=== PATIENT | female | born 1935 | race Caucasian/White ===

== ENCOUNTER → 2019-09-04 11:57 | Outpatient (CLI) | payer OTHER, SELFPAY ==
--- NOTE | 2019-09-04 | DI.RAD.S_ITS ---
PROCEDURE: XR LUMBAR SPINE 2-3V INDICATIONS: Low back pain TECHNIQUE: 2 views of the lumbar spine were acquired. COMPARISON: [facility], , L-SPINE 2-3 VIEWS, 12/24/2013, 11:32. FINDINGS: Bones: 5 [id number] vertebrae are present. There is normal bony alignment maintained by unilateral left-sided posterior fusion procedure with transverse pedicle screws and vertical fixation kathryn extending along the left margin of the posterior elements of the lumbosacral spine spanning from L2-S1.. No vertebral body compression fractures. No suspicious bony lesions. Soft tissues: Overlying bowel gas pattern is normal. No suspicious soft tissue calcifications. IMPRESSION: Prior spine fusion procedure as discussed on the left only, establishing virtual anatomic alignment. No evidence of device loosening or disruption. Dictated by: Gurinder Wheeler M.D. on 09/04/2019 at 13:18 Approved by: Gurinder Wheeler M.D. on 09/04/2019 at 13:20
--- NOTE | 2019-09-04 | DI.RAD.S_ITS ---
PROCEDURE: XR RIBS RT MIN 3V W CXR 1V INDICATIONS: Low back pain TECHNIQUE: 2 views of the right ribs were acquired, along with a single view chest. COMPARISON: [facility], CR, XR CHEST 2VW, 02/09/2017, 17:17. CT, CT ANGIO CHEST PE, 02/10/2017, 12:40. FINDINGS: Surgical changes and devices: Prior unilateral left-sided lumbosacral spine fusion procedure with vertical fixation kathryn stable over time from January of 2017.. Right breast surgical clips incidentally noted. Bones and chest wall: No fractures or dislocations. No suspicious bony lesions. Overlying soft tissues appear unremarkable. No rib fracture found. Severe right shoulder joint osteoarthritis. Lungs and pleura: No pleural effusions or pneumothorax. Lungs appear clear. Mediastinum: Mediastinal contours appear normal. Heart size is normal. IMPRESSION: Source of right-sided rib pain is not identified. No adjacent pneumothorax or subcutaneous emphysema is seen. Incidental note is made of several right breast surgical clips, no osseous metastatic disease is suspected. Note is made of moderately severe right shoulder joint osteoarthritis with near qauk-sz-tevr articulation. Dictated by: Gurinder Wheeler M.D. on 09/04/2019 at 13:15 Approved by: Gurinder Wheeler M.D. on 09/04/2019 at 13:18
== END ==
PROVIDERS: PCP Internal Medicine; Visit Provider Internal Medicine
DX: M54.5 Low back pain (principal); R07.81 Pleurodynia; M19.011 Primary osteoarthritis, right shoulder; Z98.1 Arthrodesis status
CPT/HCPCS: 71100; 71101; 72100

== ENCOUNTER → 2020-03-05 13:07 | Outpatient (CLI) | payer OTHER, SELFPAY ==
--- NOTE | 2020-03-05 | DI.MRI.S_ITS ---
PROCEDURE: MR STROKE Pre- and post-contrast brain MRI, non-contrast brain MR angiogram, pre- and postcontrast neck MR angiogram INDICATIONS: Transient cerebral ischemic attack, unspecified TECHNIQUE: Brain: Noncontrast axial T1 spin echo, axial T2 fast spin echo, sagittal and axial FLAIR, coronal T2 fast spin echo, axial gradient echo, axial diffusion and ADC through the brain. After the administration of contrast, axial 3D VIBE of the cranial vasculature and brain. Brain MRA: Non-contrast 3-D time of flight MR angiogram, with multiple figoiqj-olyrhaczo-itcazhvrti (MIP) reformats performed. Neck MRA: Axial and sagittal TruFISP through the neck. Coronal dynamic MR angiogram during administration of contrast in the arterial and venous phases, with 3-dimenstional azkhlcf-xmcutsiiz-jlkgzyfera (MIP) reformats constructed from subtraction images. COMPARISON: [facility], CT, HEAD WITHOUT CONTRAST, 05/01/2013, 10:40. FINDINGS: Image quality: Excellent. BRAIN: CSF spaces: Ventricles are normal in size and shape. Basal cisterns are patent. No extra-axial fluid collections. Brain: No intracranial bleeds or mass effects. [place]-white matter interface is normal. Diffusion weighted images show no acute ischemic insults. Prevertebral volume loss is seen. Chronic small vessel ischemic changes are seen. Brainstem appears normal. Normal intravascular flow voids are present. No abnormal intracranial enhancement. Skull and face: Calvarial marrow signal is normal. Orbits appear normal. Note is made of bilateral lens replacements. Sinuses: Sinuses and mastoids are clear. BRAIN MR ANGIOGRAM: Anterior circulation: Intracranial internal carotid arteries are normal in size and enhancement. The flow within the paired anterior cerebral arteries is normal and symmetric. The flow within the middle cerebral arteries is normal and symmetric. The anterior communicating artery is seen. No stenoses, occlusions, or aneurysms. Posterior circulation: The visualized portions of the vertebral arteries demonstrate normal caliber, and join to form a normal appearing basilar artery. The flow within the posterior cerebral arteries is normal and symmetric. No stenoses, occlusions, or aneurysms. NECK MR ANGIOGRAM: Carotids: Great vessels demonstrate a conventional anatomy as they arise from the aortic arch. The origins of the common carotid arteries appear patent. The calibers and courses of both common carotid arteries are normal. The bifurcation regions appear normal bilaterally. The internal carotid arteries demonstrate normal course and caliber. Posterior circulation: The origins of the vertebral arteries appear patent. More superior portions of both vertebral arteries demonstrate normal course and caliber, and join to form a normal appearing basilar artery. Miscellaneous: Subclavian arteries appear patent. Pre-contrast images through the neck show no soft tissue abnormalities. IMPRESSION: BRAIN MRI: No findings of acute or subacute infarction can be seen. Note is made of age-appropriate brain parenchymal volume loss and chronic small vessel ischemic changes. No masses or abnormal enhancement can be seen. BRAIN MR ANGIOGRAM: No significant intracranial arterial abnormality can be seen. NECK MR ANGIOGRAM: Within the arteries of the neck, no hemodynamically significant stenosis can be seen. Dictated by: Rk Campoverde M.D. on 03/05/2020 at 13:21 Approved by: Rk Campoverde M.D. on 03/05/2020 at 13:26
== END ==
PROVIDERS: PCP Internal Medicine; Referring Provider Internal Medicine; Visit Provider Internal Medicine
DX: G45.9 Transient cerebral ischemic attack, unspecified (principal)
CPT/HCPCS: 70548; 70553

== ENCOUNTER → 2021-02-23 20:13 | Outpatient (ROUT) | payer OTHER, SELFPAY ==
[2021-02-23 20:30] LABS: Add Manual Diff / Slide Review NO; Basophils Absolute Auto 100 /uL (0-100); Basophils Percent Auto 1.1 % (0-2); Eosinophils Absolute Auto 100 /uL (0-450); Eosinophils Percent Auto 1.3 % (2-4); Hematocrit 34.4 % (36-46); Hemoglobin 11.3 g/dL (12.0-16.0); Lymphocytes Absolute Auto 500 /uL (1100-4500); Lymphocytes Percent Auto 4.9 % (25-40); Mean Corpuscular HGB Conc 32.8 % (30-36); Mean Corpuscular Hemoglobin 28.1 PG (26-34); Mean Corpuscular Volume 85.5 fL (80-100); Monocytes Absolute Auto 1100 /uL (0-900); Monocytes Percent Auto 9.7 % (3-14); Neutrophils Absolute Auto 9100 /uL (1500-7000); Platelet Count 298 X10^3/uL (150-400); Red Blood Cell Count 4.03 X10^6/uL (4.0-5.2); Red Cell Distribution Width 15.2 % (11.6-14.8); White Blood Cell Count 10.9 X10^3/uL (4.5-11.0)
[2021-02-23 20:40] LABS: Alanine Aminotransferase 23 IU/L (<35); Albumin 3.5 g/dL (3.5-5.0); Albumin Globulin Ratio 1.1 (1.0-2.8); Alkaline Phosphatase 86 U/L (38-126); Aspartate Aminotransferase 31 IU/L (14-36); BUN Creatinine Ratio 36.4 (6-22); Bilirubin Total 0.2 mg/dL (0.2-1.3); Blood Urea Nitrogen 24 mg/dL (7-17); Calcium 9.6 mg/dL (8.4-10.2); Carbon Dioxide 22 mmol/L (22-32); Chloride 108 mmol/L (98-107); Estimated Glomerular Filt Rate > 60.0 mL/min (>60); Globulin 3.2 g/dL (1.7-4.1); Glucose 103 mg/dL (80-110); HEMOLYSIS < 15 (0-50); Sodium 140 mmol/L (137-145); Total Protein 6.7 g/dL (6.3-8.2)
== END ==
PROVIDERS: PCP Internal Medicine; Visit Provider Internal Medicine
DX: I35.9 Nonrheumatic aortic valve disorder, unspecified (principal); E78.2 Mixed hyperlipidemia
CPT/HCPCS: 80053; 84443; 85025